=== PATIENT | male | born 1985 | race Caucasian/White ===

== ENCOUNTER 2016-09-18 00:34 | Emergency (ER) | payer OTHER ==
[~2016-09-18] VITALS: Ht 160 cm; Wt 56.7 kg
[~2016-09-18 00:34] MED LIST: AUGMENTIN 500-1 EACH PO; BACTRIM DS TAB1 EACH PO; CIPROFLOXACIN500 M1 PO; INVANZ 1GM/NS 101 GM IV; NOHOMEMEDICATIONS; NORCO 5-325 TA1 EACH PO
[2016-09-18 00:54] LABS: URINE BILIRUBIN NEGATIVE (Negative); URINE BLOOD TRACE (Negative); URINE COLOR YELLOW; URINE GLUCOSE-RANDOM* NEGATIVE (Negative); URINE KETONES NEGATIVE (Negative); URINE LEUKOCYTES-REFLEX 3+ (Negative); URINE PROTEIN (DIPSTICK) NEGATIVE (Negative); URINE UROBILINOGEN 0.2 E.U./dl (0.2-1.0)
[2016-09-18] MEDS ORDERED: BACTRIM DS TAB1 EACH PO (01:06)
[2016-09-18 01:10] LABS: URINE WBC-REFLEX >25 Many /HPF (0-5)
[2016-09-18 01:11] LABS: CASTS None Seen /LPF (None Seen); CRYSTALS None Seen /LPF (None Seen); SQUAMOUS None Seen /LPF (0-3); URINE RBC 0-2 Rare /HPF (0-2); WBC CLUMPS Occasional (None Seen)
== END 2016-09-18 01:07 ==
LOC: ER 00:34
PROVIDERS: Emergency Medicine
DX: N39.0 Urinary tract infection, site not specified (principal); F17.210 Nicotine dependence, cigarettes, uncomplicated; F10.99 Alcohol use, unspecified with unspecified alcohol-induced disorder; Z87.448 Personal history of other diseases of urinary system